=== PATIENT | male | born 1995 | race Caucasian/White ===

== ENCOUNTER 2017-05-10 10:23 | Emergency (ER) | payer SELFPAY ==
[~2017-05-10] VITALS: Ht 185.4 cm; Wt 72.5 kg
[~2017-05-10 10:23] MED LIST: AMOX875T PO; CIPR500T4 PO; NAPR500 PO
[2017-05-10 10:24] VITALS: BP 135/86; PULSE 110; RESP 20; TEMP 97.7; O2SAT 96
[2017-05-10] MEDS ORDERED: KETOROLAC TROMETHAMINE 60 MG/2 ML (IM) VIAL IM ONE (10:45)
[2017-05-10] MEDS ORDERED: ORPHENADRINE INJ 60 MG/2 ML AMP IM ONE (10:45)
[2017-05-10] MEDS ORDERED: MEDR4PAK PO (10:48)
[2017-05-10] MEDS ORDERED: CYCL10TA PO (10:48)
[2017-05-10] MEDS ORDERED: NORC5TAB PO (10:48)
--- NOTE | 2017-05-10 10:48 | PD ---
HPI Chief Complaint: Back/ Neck Pain or Injury Time Seen by Provider: 10:32 Travel History International Travel<30 days: No Contact w/Intl Traveler<30days: No Traveled to known affect area: No History of Present Illness HPI The patient is a 21-year-old male who presents to the emergency department via private vehicle for back pain. The patient states he was moving furniture 3 days ago, dragging furniture, when he developed low back pain. The back pain is located over the lower lumbar region or left sacroiliac area, radiates into the sacral and coccyx area as well as down the lateral left leg, just inferior to the left knee. The patient states his leg will "lock up "secondary to the pain. He states he has urinated once in the last 2 days, denies any constipation or urinary incontinence. He does occasionally notes that the pain goes down the left leg and is associated with numbness. He does have a history of back pain or last several weeks, denies any known trauma. He denies any history of IV drug abuse. He denies any fever, chills, or sweats. He denies any weakness to left lower extremity, but does note pain radiating from the left sacroiliac down the left leg. [facility] Past Medical History Medical History: Denies Significant Hx Past Surgical History Surgical History: No Previous Surgery Social History Alcohol Use: No Tobacco Use: No Substance Use: No Allergies-Medications (Allergen,Severity, Reaction): Coded Allergies: No Known Allergies (Unverified Adverse Reaction, Unknown, 05/10/17) Reported Meds & Prescriptions Reported Meds & Active Scripts Active No Active Prescriptions or Reported Medications Review of Systems Except as stated in HPI: all other systems reviewed are Neg General / Constitutional: No: Fever Gastrointestinal: No: Nausea, Vomiting, Abdominal Pain Genitourinary: No: Dysuria, Incontinence Musculoskeletal: Positive: Pain, No: Weakness Neurologic: Positive: Paresthesia, Sensory Disturbance Physical Exam Narrative GENERAL: Awake, alert, pleasant 21-year-old male who appears his stated age and is in no acute respiratory distress. He does appear in moderate discomfort. SKIN: Focused skin assessment warm/dry. HEAD: Atraumatic. Normocephalic. EYES: No injection or drainage. ENT: No nasal bleeding or discharge. Mucous membranes pink and moist. NECK: Trachea midline. No JVD. MUSCULOSKELETAL: No obvious deformities. No clubbing. No cyanosis. No edema. Patient is able to ambulate. Back: No tenderness of the lumbar vertebrate. Mild tenderness of left sacroiliac and left paravertebral muscle. NEUROLOGICAL: Awake and alert. No obvious cranial nerve deficits. Motor grossly within normal limits. Normal speech. PSYCHIATRIC: Appropriate mood and affect; insight and judgment normal. Data Data Last Documented VS Vital Signs Date Time Temp Pulse Resp B/P (MAP) Pulse Ox O2 Delivery O2 Flow Rate FiO2 05/10/17 10:24 97.7 110 20 135/86 (102) 96 Room Air Orders Orders Ketorolac Inj (Toradol Inj) (05/10/17 10:45) Orphenadrine Inj (Norflex Inj) (05/10/17 10:45) [facility] Medical Decision Making Medical Screen Exam Complete: Yes Emergency Medical Condition: Yes Medical Record Reviewed: Yes Differential Diagnosis Differential diagnosis includes back pain with radiculopathy, herniated disc, spinal stenosis, cauda equina, muscle spasm, neuropathy. Narrative Course The patient is able to ambulate, has no direct trauma to the back. He denies any urinary incontinence, however, does state mild decreased urine output over the last several days secondary to pain. The patient is able to a bili, has no obvious weakness to left leg, but does appear to suffer from muscle spasms and radiculopathy into the left leg. The patient was administered Toradol and Norflex for pain. He denies any history of IV drug abuse, I doubt epidural abscess. He does have a known precipitating injury with pulling furniture. Patient will be placed on a Medrol Dosepak, anti-inflammatories, and pain medications. He is advised to return if symptoms worsen or progress. Diagnosis Primary Impression: Back pain with left-sided radiculopathy Patient Instructions: General Instructions Additional Instructions: Medications as directed. Follow-up with your primary physician. Return if symptoms worsen or progress. Med/Other Pt SpecificInfo: Prescription(s) given Scripts Hydrocodone-Acetaminophen ([place]) 5 Mg-325 Mg Tab 1 TAB PO Q6H Y for PAIN, #15 TAB 0 Refills Prov: Ric Trinh MD 05/10/17 Cyclobenzaprine (Flexeril) 10 Mg Tab 10 MG PO TID for Muscle Spasm for 10 Days, #30 TAB 0 Refills Prov: Ric Trinh MD 05/10/17 Methylprednisolone Dosepak (Medrol Dosepak) 4 Mg Dspk 4 MG PO DIRECTED, #1 DSPK 0 Refills Per Pharmacist direction Prov: Ric Trinh MD 05/10/17 Disposition: 01 DISCHARGE HOME Condition: Stable Ric Trinh MD May 10, 2017 10:48
== END 2017-05-10 11:14 | disposition home or self-care (01) ==
LOC: NEPD 10:23
DX: M54.16 Radiculopathy, lumbar region (principal)
CPT/HCPCS: 96372; 99284; J1885; J2360